=== PATIENT | male | born 1990 | race Caucasian/White ===

== ENCOUNTER 2025-01-05 07:51 | Emergency (ER) | payer SELFPAY ==
[2025-01-05] MEDS: Ketorolac 30 MG/ML SDV IM ONE (08:39)
== END 2025-01-05 09:56 | disposition home or self-care (01) ==
LOC: MW.ED 07:51
DX: M54.42 Lumbago with sciatica, left side (principal); Z79.899 Other long term (current) drug therapy
CPT/HCPCS: 96372; 99283; A9270; J1885